=== PATIENT | female | born 1990 | race Caucasian/White ===

== ENCOUNTER 2020-08-18 11:00 | Outpatient (CLI) | payer OTHER, SELFPAY ==
[2020-08-18 11:32] LABS: Amphetamine Screen Urine Negative (Negative); Barbiturate Screen Urine Negative (Negative); Benzodiazepines Screen Urine Negative (Negative); Cannabinoid Screen Urine Negative (Negative); Cocaine Screen Urine Negative (Negative); Methadone Screen Urine Negative (Negative); Opiate Screen Urine Negative (Negative); Phencyclidine Screen Urine Negative (Negative)
== END 2020-08-18 11:01 | disposition home or self-care (01) ==
PROVIDERS: PCP Nurse Practitioner Family; Visit Provider Nurse Practitioner Family
DX: Z00.00 Encounter for general adult medical examination without abnormal findings (principal)
CPT/HCPCS: 80307

== ENCOUNTER 2021-04-22 14:15 | Outpatient (CLI) | payer OTHER, SELFPAY ==
--- NOTE | ~2021-04-22 | XR_ITS ---
EXAMINATION: XR knee LT 3V DATE: 04/22/2021 14:53 INDICATION: Left knee pain. Swelling. TECHNIQUE: 3 views of left knee on 4 radiographs were obtained. COMPARISON: None. FINDINGS: Bone alignment is normal. No fracture. There is mild osteoarthritis of medial and patellofe moral compartments characterized by tiny marginal osteophytes. No joint space narrowing. No knee join t effusion. IMPRESSION: 1. Mild left knee osteoarthritis. Reviewed, dictated and finalized at location A. 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
== END 2021-04-22 14:16 | disposition home or self-care (01) ==
LOC: CHSIMG 14:17
PROVIDERS: PCP Internal Medicine; Visit Provider Nurse Practitioner Family
DX: M25.562 Pain in left knee (principal)
CPT/HCPCS: 73562

== ENCOUNTER 2021-08-03 11:54 | Outpatient (CLI) | payer OTHER, SELFPAY ==
--- NOTE | ~2021-08-03 | XR_ITS ---
XR chest 2V 08/03/2021 12:28 Indication: Left-sided chest pain. Shortness of breath. Dyspnea. Procedure: 2 view chest Comparison: 07/01/2016 Findings: Left basilar airspace disease, compatible with pneumonia. No significant effusion. No pneum othorax. No acute osseous abnormality. Impression: 1: Left basilar airspace disease, compatible with pneumonia. Reviewed, dictated and finalized at location A. Impression: 1: Left basilar airspace disease, compatible with pneumonia.
[2021-08-03 12:13] LABS: Basophils Absolute Auto 0.03 K/mm3 (0.00-0.10); Basophils Percent Auto 0.3 % (0.0-1.0); Eosinophils Absolute Auto 0.11 K/mm3 (0.02-0.50); Eosinophils Percent Auto 1.2 % (1.0-6.0); Hematocrit 40.9 % (35.0-49.0); Hemoglobin 13.1 g/dL (12.0-15.0); Immature Granulocyte Absolute 0.02 K/mm3 (0.00-0.00); Immature Granulocyte Percent A 0.2 % (0.0-0.0); Lymphocytes Absolute Auto 2.07 K/mm3 (1.10-4.50); Lymphocytes Percent Auto 23.2 % (18.0-42.0); Mean Corpuscular Hemoglobin 31.3 pg (27.0-31.0); Mean Corpuscular Volume 97.6 fL (78.0-102.0); Mean Platelet Volume 9.5 fl (9.2-11.8); Monocytes Absolute Auto 0.69 K/mm3 (0.10-0.90); Monocytes Percent Auto 7.7 % (2.0-11.0); Neutrophils Percent Auto 67.4 % (50.0-70.0); Platelet Count Result 266 K/mm3 (150-420); Red Blood Count 4.19 M/mm3 (4.20-5.40); Red Cell Distribution Width 13.3 % (11.6-14.4); White Blood Count 8.9 K/mm3 (4.8-10.8)
[2021-08-03 12:21] LABS: Add Urine Microscopic? YES; Appearance Urine Clear (Clear); Bilirubin Urine Negative (Negative); Blood Urine 3+ (Negative); Color Urine Light Yellow (Yellow); Glucose Urine UA Negative (Negative); Ketones Urine Negative (Negative); Leukocyte Esterase Ur Negative LEU/UL (Negative); Nitrate Urine Negative (Negative); Protein Urine Negative (Negative); Specific Grav Ur 1.025 (1.010-1.020); Urobilinogen Urine 0.2 mg/dL (0.2-1.0)
[2021-08-03 12:39] LABS: RBC Urine 21-50 /hpf (0-2)
[2021-08-03 12:40] LABS: Bacteria Urine Trace /hpf; Squamous Epithelial Cell Urine Occasional /hpf (Few); WBC Urine None seen /hpf (0-3)
[2021-08-03 12:53] LABS: Alanine Aminotransferase 30 U/L (14-59); Albumin Level 3.6 g/dL (3.4-5.0); Alkaline Phosphatase 97 U/L (46-116); Amylase 54 U/L (25-115); Anion Gap 8 mmol/L (8-16); Aspartate Amino Transferase 11 U/L (15-37); Bilirubin,Total 0.2 mg/dL (0.00-1.00); Blood Urea Nitrogen 15 mg/dL (7-18); CRP 0.7 mg/dL (0.0-0.9); Calcium 8.7 mg/dL (8.5-10.1); Carbon Dioxide 27 mmol/L (21-32); Chloride 103 mmol/L (98-108); Creatine Kinase 80 U/L (26-192); Estimated Glomerular Filt Rate > 60; Glucose 102 mg/dL (70-99); Lipase 92 U/L (73-393); Osmolality Calculated 286 mOsm/kg (285-295); Potassium 3.7 mmol/L (3.5-5.1); Sodium 138 mmol/L (136-145); Total Protein 7.3 g/dL (6.4-8.2); Troponin I 6.4 ng/L (0.00-60.4)
[2021-08-05 17:06] LABS: H pylori, Urea Breath NOT DETECTED (NOT DETECTED)
== END 2021-08-03 11:55 | disposition home or self-care (01) ==
LOC: CHSLAB 11:56
PROVIDERS: PCP Internal Medicine; Visit Provider Nurse Practitioner Family
DX: R07.9 Chest pain, unspecified (principal); R10.9 Unspecified abdominal pain
CPT/HCPCS: 36415; 71046; 80053; 81001; 82150; 82550; 82553; 83013; 83690; 84484; 85025; 85380; 86140; 87086; 87088

== ENCOUNTER 2022-06-13 02:14 | Day surgery (SDC) | payer OTHER, SELFPAY ==
[2022-06-02 11:51] VITALS: BMI 40.1
--- NOTE | 2022-06-02 11:55 | PC.NURSE ---
Report to the Outpatient Waiting Room, entrance under the green pavilion located off [facility], at time 0600 on date 06/13/22. Planned Procedure Time: 0730. Time changes happen often and if your time is changed the preop area will call you the afternoon before. - You and your visitor will be asked to self-screen and do not enter if you have any COVID symptoms. - Only one visitor is requested with a max of two and NO children visitors are allowed at this time. - The patient visitor may be requested to leave or wait in car when not with patient due to distancing restrictions. - A mask is optional within the hospital. Patients may have clear liquids (water, carbonated beverages, clear teas, apple juice) until 3 hours prior to surgery with a maximum of 20 ounces. - No food from midnight until time of surgery Take the following medications with a SIP of water the morning of surgery: SERTRALINE Medications to discontinue per physician: N/A Date to take last dose: N/A Please no make-up, nail bermudian, hairspray, perfume, deodorant, or body powder the day of surgery. No jewelry (including any body piercings) or valuables the day of surgery, leave them at home. Please take a shower or bath the night before, or the morning of, surgery with an antibacterial soap. Wear comfortable, loose fitting clothing. - Jewelry must be removed prior to entering the operating room. Rings and piercings that are not removed may be cut off. - The hospital will not accept responsibility for valuables. - Please leave all valuables, including medications, at home the day of surgery. If you are going home after surgery, a licensed auto carrier driver must drive you home. - NO public transportation without another adult if you receive anesthesia. - We recommend that an adult stay with you for 24 hours following discharge. - We also recommend that you do not drive, make important decision, drink alcoholic beverages, or take any drugs that were not prescribed by your health care provider for at least 24 hours after your discharge time. Follow any additional instructions given to you from your surgeon. If you or anyone in your household have experienced Covid symptoms in the past week, please notify your surgeon or the nurse liaison at the phone number below for possible testing. Telephone instructions given to PT - ALIS PRESCOTT and asked if any additional questions and then verbalized understanding. Patient advised to call surgeon office or pre surgery nurse liaison [phone] if any additional questions.
[2022-06-13] VITALS (8 sets, daily range): BP systolic 112–160; BP diastolic 77–91; PULSE 72–103; RESP 12–20; TEMP 36–36.2; O2SAT 91–100
--- NOTE | 2022-06-13 06:45 | WPDANESEPPF ---
Anes - Initial Pre Proc Eval Procedure: Operation Date: 06/13/22 07:30 Proposed Procedures p Excision of Parietal Left Scalp Mass - Rafael Bolden MD Date/Time: 06/13/22 06:45 Surgeon: Rafael Bolden MD Pre Op Diagnosis: scalp mass Patient Data Age: 31 Gender: F Height: 1.7 m Weight: 115.4 kg Last Vital Signs Temp 36.0 C L 06/13/22 06:25 Pulse 72 06/13/22 06:25 Resp 14 06/13/22 06:25 BP 133/82 06/13/22 06:25 Pulse Ox 98 06/13/22 06:25 O2 Del Method Room Air 06/13/22 06:25 Allergies Allergy/AdvReac Type Severity Reaction Status Date / Time latex Allergy Intermediate Rash, hives Verified 06/13/22 06:29 adhesive tape Allergy Unknown Rash Verified 06/13/22 06:29 Home Medications Medication Instructions Recorded Confirmed Type omeprazole 40 mg capsule,delayed 40 mg PO DAILY 05/27/22 06/02/22 History release sertraline 100 mg tablet 100 mg PO DAILY 05/27/22 06/02/22 History Patient hx anesthesia problems: none Family hx anesthesia problems: none Results Review: All pre-operative results and documents have been reviewed as part of the pre-operative evaluation. 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 Informed Consent: The patient's anesthetic plan and its attendant risks and benefits were discussed with the patient/family/POA. Questions were solicited and answers provided to the satisfaction of the patient/family/POA.
--- NOTE | 2022-06-13 07:33 | WPDHPUPDATE1 ---
History and Physical Update Update Date/Time: 06/13/22 07:33 History and Physical has been reviewed, including an updated exam of the patient. There are NO changes in the patient's condition. Risks, benefits, and alternatives have been discussed and questions answered. Patient agrees to proceed with procedure.
[2022-06-13] MEDS: LACTATED RINGERS 1,000 ML 30 ML IV CONT (07:34)
[2022-06-13] MEDS: ceFAZolin 2 GM/D5W 50 ML 2 GM/50 ML BAG IVPB (07:40)
[2022-06-13] MEDS: LIDO 2%/EPINEPHRINE 1:100,000 50 ML VIAL 20 ML INFILTRATE (08:04)
[2022-06-13] MEDS: KETOROLAC 15 MG/ML VIAL (*BKC) IV PUSH (08:23)
--- NOTE | 2022-06-13 08:33 | W.PM.PROC2 ---
Procedure Note - Detailed Date of Procedure 06/13/22 Pre-op Diagnosis scalp mass Post-op Diagnosis Same Procedure Performed Excision of left parietal scalp mass. 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 Findings 1.8 x 1.3 x 1.0 cm friable pedunculated well-circumscribed scalp mass left parietal scalp. Description of Procedure After informed consent was obtained patient was brought to the operating room where she was placed in a supine position and then general LMA anesthesia was administered. The area left parietal scalp was then prepped and draped in usual sterile fashion. A time-out was then performed, correctly identifying the patient as well as procedure to be performed and verified she was given Ancef for the antibiotics. I then proceeded to inject a combination of 0.5% Marcaine mixed with 2% lidocaine with epinephrine around the mass for local anesthetic effect. I then made an elliptical incision around the mass keeping a minimum of 0.3centimeter margin circumferentially around the mass. Excision was carried full thickness down to the underlying galea with the scalpel and then completely excised off utilizing electrocautery. This mass was then passed off table and then measured. It was 1.8 x 1.3 x 1.0 cm. It was then sent to pathology for examination. Hemostasis was achieved in the wound utilizing the cautery. The incision was then closed utilizing a running and locking 3 0 Prolene suture placed in a simple 1 layer closure. The incision was then cleaned and then antibiotic ointment was applied. The patient tolerated the procedure well no complications. All sponges, needles, and instrument counts were correct at the end procedure. EBL was _15__cc. The patient was awakened and taken to recovery in stable satisfactory condition Implants None Estimated Blood Loss 15 Drains No Packing No Pathology Yes (Scalp mass) Complications No immediate complications Condition Stable Disposition PACU [facility] Billing Surgery - Charge Forward: Surgery Billing
== END 2022-06-13 10:25 | disposition home or self-care (01) ==
PROVIDERS: PCP Internal Medicine; Visit Provider Surgery
PROC: (CPT 11423; principal; 2022-06-13 07:30)
DX: D18.01 Hemangioma of skin and subcutaneous tissue (principal); K21.9 Gastro-esophageal reflux disease without esophagitis; F41.8 Other specified anxiety disorders; E66.9 Obesity, unspecified; Z68.39 Body mass index [BMI] 39.0-39.9, adult; F12.90 Cannabis use, unspecified, uncomplicated
CPT/HCPCS: 11423; 88304; A9270; J0690; J1100; J1885; J2250; J2405; J2704; J3010; J7120